=== PATIENT | male | born 1985 | race Caucasian/White ===

== ENCOUNTER 2021-07-16 15:54 | Emergency (ER) | payer MEDICAID, SELFPAY ==
--- NOTE | ~2021-07-16 | XR_ITS ---
EXAMINATION: XR CHEST CLINICAL INFORMATION: Chest pain COMPARISON: Previous chest x-ray July 2015 TECHNIQUE: Frontal view of the chest was obtained. FINDINGS: No significant abnormality is noted involving the heart, lungs, mediastinum, bony thorax or soft tissues. XR/XR chest 1V IMPRESSION: Unremarkable examination.
[2021-07-16 15:59] VITALS: BP 145/92; PULSE 88; RESP 18; TEMP 36.8; O2SAT 96; BMI 34.3
--- NOTE | 2021-07-16 16:08 | ECG_ITS ---
Test Reason : CHEST PAIN Blood Pressure : / mmHG Vent. Rate : 079 BPM Atrial Rate : 079 BPM P-R Int : 150 ms QRS Dur : 086 ms QT Int : 384 ms P-R-T Axes : 025 046 036 degrees QTc Int : 440 ms Normal sinus rhythm Normal ECG No previous ECGs available Referred By: Generic ED Physician Electronically Signed By:LEDA QUICK
[2021-07-16 16:43] LABS: Basophils Percent Auto 0.5 % (0-2); Eosinophils Absolute Auto 0.3 X10*3/uL (0.0-0.4); Eosinophils Percent Auto 3.7 % (0-4); Hematocrit 44.4 % (42-52); Hemoglobin 14.9 g/dl (14.0-18.0); Imm Gran Abs Auto 0.03 X10*3/uL (0.00-0.03); Imm Gran Pct Auto 0.4 % (0.0-0.4); Lymphocytes Absolute Auto 3.2 X10*3/uL (1.2-4.9); Lymphocytes Percent Auto 41.7 % (20-40); MANUAL DIFF FLAG NO; Mean Corpuscular HGB Conc 33.6 g/dl (31.0-36.0); Mean Corpuscular Hemoglobin 28.3 pg (27.0-33.0); Mean Corpuscular Volume 84.3 fL (80-98); Mean Platelet Volume 9.8 fL (9.4-12.4); Monocytes Absolute Auto 0.6 X10*3/uL (0.1-1.2); Monocytes Percent Auto 8.3 % (2-11); Neutrophils Absolute Auto 3.5 X10*3/uL (2.0-8.3); Neutrophils Percent Auto 45.4 % (45-73); Platelet Count 320 X10*3/uL (160-400); Red Blood Count 5.27 X10*6/uL (4.60-5.80); White Blood Count 7.7 X10*3/uL (4.8-10.8)
[2021-07-16 16:55] LABS: Anion Gap 13 (12-20); Blood Urea Nitrogen 14 mg/dL (9-16); Calcium 9.1 mg/dL (8.4-10.2); Carbon Dioxide 24 mmol/L (22-29); Chloride 108 mmol/L (96-108); Creatinine Clr Calc Pharmacy 130.9; Estimated Glomerular Filt Rate > 60; Glucose Random 84 mg/dL (60-115); Potassium 3.9 mmol/L (3.3-5.1); Sodium 141 mmol/L (135-145)
[2021-07-16 17:04] LABS: Troponin-I High Sensitivity < 3.5 ng/L (<3.5-35.0)
--- NOTE | 2021-07-16 17:52 | ED.CHESTPAIN ---
HPI - Chest Pain General Chief Complaint: Chest Pain Stated Complaint: Chest pain Time Seen by Provider: 07/16/21 17:33 Source: patient Mode of arrival: ambulatory Limitations: no limitations History of Present Illness HPI narrative: Patient presents complaining of chest pain. Has been present for the past several weeks. He thinks it may be due to his hypertension. He has had longstanding episodes of high blood pressure which he has taken at home. He has intermittently taking 5 mg of amlodipine which he bought in [place]. He states this helps but he typically only takes it every time he feels he has a headache which is only every few days. He has never been on daily treatment for his hypertension. he recently traveled from of [place] and a 14 hour plane flight. Since that time he has been having chest pain and some dyspnea. The chest pain he describes is substernal pressure. Yesterday radiated to his arm. It is constant. It has been present since the flight. He states he would occasionally get up before the flight. No history of thromboembolic disease that he knows of. He does have a significant family history for cardiovascular disease in that his father and uncle both of MIs at a relatively young age. He has an extensive family history of hypertension. 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 He occasionally gets swelling in his feet. But he denies any focal leg or calf pain or swelling. No recent fevers or chills. He was tested for COVID prior to flying and it was negative. Related Data Previous Rx's Medication Instructions Recorded amlodipine 10 mg tablet 10 mg PO DAILY #60 tab 07/16/21 Allergies Allergy/AdvReac Type Severity Reaction Status Date / Time No Known Allergies Allergy Verified 07/16/21 15:59 [No Known Allergies*] Review of Systems Constitutional: Constitutional: Denies fever(s) Cardiovascular: Cardiovascular: Reports chest pain, Reports dyspnea and Reports dyspnea on exertion Respiratory: Respiratory: Denies cough, Reports dyspnea and Reports dyspnea on exertion Gastrointestinal: Comments: Chronic diarrhea. Musculoskeletal: Comments: No calf pain Neurologic: Comments: No weakness numbness or paresthesias Psychiatric: Comments: Anxiety [facility] Past Medical History [facility] Narrative: Family history as mentioned in HPI Medical History (Updated 07/16/21 @ 19:27 by Russ Vides MD) Hypertension Social History Social History Patient Tobacco Use Status: Current someday Tobacco user Smoked in Last 30 Days: Yes Use of substances other than those prescribed or required for medical reasons: No Advance Directives: No Advance Directives Information Provided: No Physical Exam Vital Signs: Vital Signs: Last Vital Signs Temp 98.2 F 07/16/21 15:59 Pulse 69 07/16/21 19:04 Resp 16 07/16/21 18:58 BP 127/89 07/16/21 19:04 Pulse Ox 98 07/16/21 18:58 Body Mass Index 34.3 Const: General: healthy appearing, no acute distress and alert Chest: Other: Chest is nontender Resp: Other: Clear and equal bilaterally without wheezes rales or rhonchi Cardio: Other: Regular rate and rhythm without murmurs rubs or gallops GI: Other: Soft nontender nondistended with normoactive bowel sounds Skin: Other: Warm pink and dry Neuro: Other: Awake alert in no acute distress Extrem: Other: No calf tenderness Course Course Course Narrative: Chest pain CA Hypertensive crisis Untreated hypertension Rule out end-organ injury Pulmonary embolism Chronic diarrhea Workup in the emergency department shows normal EKG. Troponin, high sensitivity, is normal. Remainder of labs are also normal without evidence of renal injury. He is moderately hypertensive with a blood pressure 145/92. Amlodipine ordered. We will start him on long-term amlodipine therapy. In the meantime will order D-dimer as patient had recent long flight and potentially as a pulmonary embolism. If D-dimer is normal will hold off on further diagnostics. If it is elevated, we will order CT angiogram 7:26 p.m.. D-dimer is negative. Patient is stable for discharge home MDM - Chest Pain Lab Data Result diagrams: 07/16/21 16:34 07/16/21 16:34 Labs: Lab Results 07/16/21 07/16/21 07/16/21 Range/Units 16:34 16:34 16:34 WBC 7.7 (4.8-10.8) X10*3/uL RBC 5.27 (4.60-5.80) X10*6/uL Hgb 14.9 (14.0-18.0) g/dl Hct 44.4 (42-52) % MCV 84.3 (80-98) fL MCH 28.3 (27.0-33.0) pg MCHC 33.6 (31.0-36.0) g/dl RDW 13.0 (11.0-16.0) % Plt Count 320 (160-400) X10*3/uL MPV 9.8 (9.4-12.4) fL Immature Gran % (Auto) 0.4 (0.0-0.4) % Neut % (Auto) 45.4 (45-73) % Lymph % (Auto) 41.7 H (20-40) % Stonewall % (Auto) 8.3 (2-11) % Eos % (Auto) 3.7 (0-4) % Baso % (Auto) 0.5 (0-2) % Lymph # (Auto) 3.2 (1.2-4.9) X10*3/uL Stonewall # (Auto) 0.6 (0.1-1.2) X10*3/uL Eos # (Auto) 0.3 (0.0-0.4) X10*3/uL Baso # (Auto) 0.0 (0.0-0.2) X10*3/uL Abs Immat Gran (auto) 0.03 (0.00-0.03) X10*3/uL Absolute Neuts (auto) 3.5 (2.0-8.3) X10*3/uL Absolute Nucleated RBC 0.000 (0.0-0.012) X10*3/uL Nucleated RBC % (auto) 0.0 (0.0-0.2) /100WBC D-Dimer NG/ML Sodium 141 (135-145) mmol/L Potassium 3.9 (3.3-5.1) mmol/L Chloride 108 (96-108) mmol/L Carbon Dioxide 24 (22-29) mmol/L Anion Gap 13 (12-20) BUN 14 (9-16) mg/dL Creatinine 1.01 (0.5-1.4) mg/dL Estim Creat Clear Calc 130.9 Estimated GFR > 60 Random Glucose 84 (60-115) mg/dL Calcium 9.1 (8.4-10.2) mg/dL Troponin I High Sens < 3.5 (<3.5-35.0) ng/L 07/16/21 Range/Units 18:46 WBC (4.8-10.8) X10*3/uL RBC (4.60-5.80) X10*6/uL Hgb (14.0-18.0) g/dl Hct (42-52) % MCV (80-98) fL MCH (27.0-33.0) pg MCHC (31.0-36.0) g/dl RDW (11.0-16.0) % Plt Count (160-400) X10*3/uL MPV (9.4-12.4) fL Immature Gran % (Auto) (0.0-0.4) % Neut % (Auto) (45-73) % Lymph % (Auto) (20-40) % Stonewall % (Auto) (2-11) % Eos % (Auto) (0-4) % Baso % (Auto) (0-2) % Lymph # (Auto) (1.2-4.9) X10*3/uL Stonewall # (Auto) (0.1-1.2) X10*3/uL Eos # (Auto) (0.0-0.4) X10*3/uL Baso # (Auto) (0.0-0.2) X10*3/uL Abs Immat Gran (auto) (0.00-0.03) X10*3/uL Absolute Neuts (auto) (2.0-8.3) X10*3/uL Absolute Nucleated RBC (0.0-0.012) X10*3/uL Nucleated RBC % (auto) (0.0-0.2) /100WBC D-Dimer < 200 NG/ML Sodium (135-145) mmol/L Potassium (3.3-5.1) mmol/L Chloride (96-108) mmol/L Carbon Dioxide (22-29) mmol/L Anion Gap (12-20) BUN (9-16) mg/dL Creatinine (0.5-1.4) mg/dL Estim Creat Clear Calc Estimated GFR Random Glucose (60-115) mg/dL Calcium (8.4-10.2) mg/dL Troponin I High Sens (<3.5-35.0) ng/L Discharge Plan Discharge Clinical Impression: Atypical chest pain, Hypertension Patient Disposition: Home, Self-Care Instructions: Hypertension (ED), Chest Wall Pain (ED) Additional Instructions: Taking amlodipine daily. Be sure to check your blood pressure twice daily and record the results. Follow-up with Dr. Sanders for GI issues. Follow-up with Dr. Torres for your hypertension and significant family history of cardiac disease Prescriptions: New amlodipine 10 mg tablet 10 mg PO DAILY Qty: 60 RF: 0 Referrals: Brian Torres MD [Physician] - 2 days Darrell Sanders [Physician] - 2 days
[2021-07-16 18:58] VITALS: BP 125/81; PULSE 74; RESP 16; O2SAT 98
[2021-07-16 19:01] LABS: D Dimer < 200 NG/ML
[2021-07-16 19:04] VITALS: BP 127/89; PULSE 69
[2021-07-16] MEDS: amLODIPine Besylate 10 MG TABLET PO (19:04)
== END 2021-07-16 19:38 | disposition home or self-care (01) ==
PROVIDERS: Emergency Provider Emergency Medicine; PCP Nurse Practitioner Family
DX: R07.9 Chest pain, unspecified (principal); I10 Essential (primary) hypertension; Z79.899 Other long term (current) drug therapy
CPT/HCPCS: 36415; 71045; 80048; 84484; 85025; 85379; 93005; 99284; 99285

== ENCOUNTER → 2021-08-14 13:11 | Outpatient (BNVA) | payer MEDICAID, SELFPAY | PROVIDERS: PCP Nurse Practitioner Family; Referring Provider Nurse Practitioner Family; Visit Provider Nurse Practitioner Family | DX: R07.89 Other chest pain (principal); I10 Essential (primary) hypertension | CPT/HCPCS: 99202 ==

== ENCOUNTER → 2021-09-17 09:48 | Outpatient (REF) | payer MEDICAID, SELFPAY ==
--- NOTE | 2021-09-17 09:53 | CA_ITS ---
Acquisition Time: 2021-09-17 11:03:17 Total Exercise Time: 00:09:00 Test Indications: CP, SOB Medications: SEE CHART Protocol: PAVAN Max HR: 153 BPM 83% of Pred: 183 BPM Max BP: 178/088 mmHG Max Work Load: 10.4 METS Exercise stress test with exercise 9 min of Pavan protocol, with mild to mod sob, no chest discomfort, without arrythmia, with normotensive response to exercise, without EKG changes meeting criteria for ischemia. Test reviewed with Dr Torres Referred By: Danielle Rousseau Overread By: DANIELLE ROUSSEAU
--- NOTE | 2021-09-17 09:53 | CA_ITS ---
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 6.3 E Lat 7.4 AV Cusps Trileaflet: Yes Doppler Measurements: AORTIC PP mmHg MP mmHg Velocity: 1.2 Pulmonic: PP mmHg MPG 4 mmHg TRICUSPID: PP mmHg RA Vol. IVC: 1.8 cm LA Vol. 27.2 RVS 14 MTDD
--- NOTE | 2021-09-17 09:53 | CA_ITS ---
Transthoracic Echocardiogram Patient (Last, First, Middle): Inderjit Barillas, Gender: Male Date of : 1985 Age: 36 Procedure Date: 09/17/2021 Procedure Type: Transthoracic Echocardiogram Location: OP Height: 182.88 cm Weight: 111.13 kg BSA: 2.32 m2 Heart Rate: bpm BP: 140 / 80 mmHg Curriculum And Instruction Director: MACKENZIE Referring MD: Danielle Rousseau AESTHETICS INSTRUCTOR-Juan Biological Science Technician Fish: Claudy Coffman MD Symptoms: I10 - Essential (primary) hypertension Study Quality: Good ECG Rhythm: Sinus Conclusions: - 1. Normal LV systolic function with impaired relaxation filling pattern 2. Normal cardiac valvular Doppler 3. Normal RV systolic pressure 4. No pericardial effusion Findings Left Ventricle Normal left ventricular size, thickness, and systolic function. The visually estimated ejection fraction is between 60-65%. Spectral Doppler is indicative of an impaired relaxation filling pattern. E/E prime ratio is between 8 and 15 consistent with indeterminate filling pressures. Right Ventricle Normal right ventricular cavity size and systolic function. Atria Both atria are normal in size. There is no evidence of interatrial shunt. Aortic Valve The aortic valve structure and function is likely normal. There is no aortic valve stenosis. There is no aortic valve regurgitation. Mitral Valve Normal mitral valve structure and function. There is trace mitral valve regurgitation. There is no mitral valve stenosis. Pulmonic Valve The pulmonic valve was not well visualized. Tricuspid Valve Likely normal tricuspid valve structure and function. There is trace tricuspid valve regurgitation. The right ventricular systolic pressure is normal. The right ventricular systolic pressure is 18 mmHg. There is no evidence of pulmonary hypertension. Great Vessels All visible segments of the aorta are normal in size. The pulmonary artery was not well visualized. Venous The inferior vena cava is normal in size and collapses greater than 50% with inspiration. Pericardium/Pleural There is no evidence of pericardial effusion. Prior Study Comparison No prior study available for comparison. Measurements 2D Linear Measurements IVSd: 1.02 0.6-0.9/0.6-1.0 cm LVIDd: 4.69 3.9-5.3/4.2-5.9 cm LVIDd Index: 2.02 2.4-3.2/2.2-3.1 cm/m2 LVIDs: 2.59 2.0-3.6 cm LVPWd: 1.02 0.7-1.1 cm Ao Root: 3.40 2.1-3.5 cm LA Diam: 3.40 2.7-3.8/3.0-4.0 cm LAIDs Index: 1.47 1.5-2.3 cm/m2 LV Mass: 209.73 67-162/88-224 g LV Mass Index: 90.40 43-95/49-115 g/m2 LVOT Diam: 2.20 3.0+(-)1.3 cm 2D Systolic Function EF 4C: 61.40 >55% EF 2C: 57.90 >55% EF BiP: 57.90 >55% Mitral Valve MV Pk E: 0.66 MV PK A: 0.75 MV Decel Time: 169.00 E/A: 0.90 E'Lateral: 7.40 E'Medial: 6.31 E/E' Med: 10.50 E/E' Lat: 9.00 PHT: 49.00 MVA PHT: 4.49 Decel Sharkey: 3.94 Aortic Valve AoV Pk German: 1.25 AoV Mn German: 0.88 AoV VTI: 0.31 AoV Pk Grad: 6.00 Aov Mn Grad: 4.00 JERARDO Cont.VTI: 2.82 LVOT LVOT Pk German: 1.01 LVOT Mn German: 0.66 LVOT VTI: 0.23 LVOT Pk Grad: 4.00 LVOT Mn Grad: 2.00 LVOT Diam: 2.20 LVOT Area: 3.80 Diastolic Function MV Pk E: 0.66 MV Pk A: 0.75 E/A: 0.90 E'Medial: 6.31 E/E' Med: 10.50 E' Laterial: 7.40 E/E' Lat: 9.00 Right Ventricle TAPSE (mm): 2.10 Tricuspid Valve TR Pk German: 1.94 TR Pk Grad: 15.00 RA Press: 3.00 RVSP: 18.00 Great Vessels Aorta Ao Root-2D: 3.40 2.0-3.7 cm Ao Asc: 2.90 2.1-3.4 cm Pulmonary Valve PV Pk German: 0.96 Peak PV Grad: 4.00 Updated in Other Vendor System with Status of Final Claudy Coffman MD electronically signed on 09/24/2021 8:45:51 AM with status of Final
== END ==
LOC: HO.CARD 09:48
PROVIDERS: Visit Provider Nurse Practitioner Family
DX: I10 Essential (primary) hypertension (principal); R07.89 Other chest pain
CPT/HCPCS: 93017; 93306

== ENCOUNTER → 2021-10-22 14:51 | Outpatient (BNVA) | payer MEDICAID, SELFPAY | PROVIDERS: PCP Nurse Practitioner Family; Referring Provider Nurse Practitioner Family; Visit Provider Nurse Practitioner Family | DX: R07.89 Other chest pain (principal); I10 Essential (primary) hypertension | CPT/HCPCS: 99212 ==

== ENCOUNTER → 2023-01-07 13:55 | Outpatient (BNVA) | payer MEDICAID, SELFPAY | PROVIDERS: PCP Nurse Practitioner Family; Referring Provider Nurse Practitioner Family; Visit Provider Internal Medicine Cardiovascular Disease | DX: I10 Essential (primary) hypertension (principal) | CPT/HCPCS: 93005; 99212 ==

== ENCOUNTER 2023-06-21 13:58 | Outpatient (REF) | payer MEDICAID, SELFPAY ==
[2023-06-24 14:36] LABS: H Pylori Breath Test Negative (Negative)
== END 2023-06-21 13:59 | disposition home or self-care (01) ==
LOC: HO.LNP 13:58
PROVIDERS: PCP Nurse Practitioner Family; Visit Provider Internal Medicine Gastroenterology
DX: K21.9 Gastro-esophageal reflux disease without esophagitis (principal); R13.10 Dysphagia, unspecified
CPT/HCPCS: 83013; 99202

== ENCOUNTER 2023-06-21 13:58 | Outpatient (AMB) | payer MEDICAID, SELFPAY ==
--- NOTE | 2023-06-21 14:19 | A.OFFVIS_ITS ---
Intake Vital Signs 06/21/23 14:20 Height 6 ft Weight 244 lb 11.41 oz BMI 33.2 BP 119/70 Blood Pressure Location Lt brachial Position Sitting Pulse 71 Intake Visit Reasons: Gastroesophageal reflux disease (GERD) Intake Note: Christopher presents in the office as a new patient for GERD. CC: He states that he is having acid reflux or symptoms that are related. He has some burning and sometimes acid will come up. If he eats spicey things then he will have issues. Allergies No Known Allergies [No Known Allergies*] Allergy (Verified 06/21/23 14:21) HPI Gastroesophageal reflux disease (GERD) HPI Details 38 yr old patient being seen for assessment for assorted GI sx He has had stool frequency since young age usually post prandial he has had EGD x 2 in the past he has mild-moderate reflux notes sensation of heaviness when eating solids he has to drink water or get patted on the back going on for 4-5 months denies nausea or vomiting he has abdominal pain--epigastric pain, on and off for 2 months stools are mushy, no blood noted he has fatigue, poor sleep PMH: HTN< PSH: umbilical hernia repair SH: smoking tobacco, vaping, 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, 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 FH: father had similar symptoms, ?had peptic ulcer--brother also has peptic sx ROS: Constitutional : No Weight loss, No Fever, No Chills ENT/Mouth : No sore throat, No Rhinorrhea Eyes: No Swelling, No Redness Cardiovascular : No Chest Pain, No SOB, No Edema Respiratory : No Cough, No Sputum, No Wheezing Gastrointestinal : see HPI Genitourinary : NO Dysuria, No Urinary Frequency, No Hematuria, No Urgency Musculoskeletal : No joint pain, No Myalgias, No Joint Swelling Skin : No Skin Lesions, No rash Neuro : No Weakness, No Numbness, No Dizziness, No Headache Psych : No Anxiety/Panic, No Depression Heme/Lymph: No Bruising, No Lymphadenopathy Endocrine : No Polyuria, No Polydipsia All other systems reviewed and are negative. EXAM: GENERAL: The patient is well developed and nontoxic. VITAL SIGNS:see workflow HEENT: Nonicteric sclerae, PERRLA, EOMI. Oropharynx clear. Moist mucous membranes. Conjunctivae appear well perfused. No thyroid mass. CHEST: Chest wall is nontender. HEART: Regular rate and rhythm without murmurs. LUNGS: Clear to auscultation bilaterally. ABDOMEN: Soft, positive bowel sounds, nontender, no organomegaly.no flank tenderness SKIN: No rash, no excessive bruising, petechiae, or purpura. NEUROLOGIC: Cranial nerves II-XII intact without motor/sensory deficit. Psych: nml affect A/P: Post prandial diarrhea, maybe related to acid xs, or rapid gastric emptying, food intolerance, celiac, 2/2 olmesartan, IBD Dysphagia probably 2/2 GERD, ddx: EoE, schatzki, medications puma CCB Plan: 1/ Recommended on smoking cessation 2/ weight loss 3/ H pylori breath test 4/ EGD with balloon dilation [facility] Medical History Hypertension Surgical History History of esophagogastroduodenoscopy (EGD) Hx of colonoscopy No pertinent past surgical history Family History Father Heart disease Heart attack Mother HTN (hypertension) Diabetes Brother HTN (hypertension) Paternal Uncle Heart attack Family/Other Heart attack Family/Other Heart disease Hx of CABG Social History Alcohol intake: never Patient Tobacco Use Status: Never used Tobacco e-Cigarette/Vaping Use: Currently Using Physical Exam Vital Signs: Last Vital Signs Pulse 71 06/21/23 14:20 BP 119/70 06/21/23 14:20 BMI result Body Mass Index 33.2 Assessment & Plan Assessment & Plan (1) Dysphagia: Code(s): R13.10 - Dysphagia, unspecified (2) GERD (gastroesophageal reflux disease): Code(s): K21.9 - Gastro-esophageal reflux disease without esophagitis Medications: New pantoprazole 40 mg PO DAILY 90 tabs 2RF Coding Level of Care Code New Pt Level 4 (90769) Diagnoses Dysphagia R13.10 GERD (gastroesophageal reflux disease) K21.9
[2023-06-21 14:20] VITALS: BP 119/70; PULSE 71; BMI 33.2
== END 2023-06-21 15:10 | disposition home or self-care (01) ==
PROVIDERS: PCP Nurse Practitioner Family; Visit Provider Internal Medicine Gastroenterology
DX: R13.10 Dysphagia, unspecified (principal); K21.9 Gastro-esophageal reflux disease without esophagitis
CPT/HCPCS: 99204

== ENCOUNTER 2023-10-11 14:04 | Outpatient (AMB) | payer MEDICAID, SELFPAY ==
--- NOTE | 2023-10-11 14:05 | A.OFFVIS_ITS ---
Intake Vital Signs 10/11/23 14:12 Height 6 ft Weight 247 lb 1.957 oz BMI 33.5 BP 132/71 Blood Pressure Location Lt brachial Position Sitting Pulse 72 Intake Visit Reasons: 4 month follow up Intake Note: Inderjit presents in the office as a 4 month follow up CC: No concerns today Allergies No Known Allergies [No Known Allergies*] Allergy (Verified 10/11/23 14:12) HPI 4 month follow up HPI Details 38 yr old m here for f/u RECAP: He has had stool frequency since young age usually post prandial he has had EGD x 2 in the past he has mild-moderate reflux notes sensation of heaviness when eating solids he has to drink water or get patted on the back going on for 4-5 months denies nausea or vomiting he has abdominal pain--epigastric pain, on and off for 2 months stools are mushy, no blood noted he has fatigue, poor sleep INTERIM: he still has sx as above H pylori was neg he was supposed to get EGD not booked yet he can have some post prandial diarrhea 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 VITAL SIGNS:see workflow HEENT: Nonicteric sclerae, PERRLA, EOMI. Oropharynx clear. Moist mucous membranes. Conjunctivae appear well perfused. No thyroid mass. CHEST: Chest wall is nontender. HEART: Regular rate and rhythm without murmurs. LUNGS: Clear to auscultation bilaterally. ABDOMEN: Soft, positive bowel sounds, nontender, no organomegaly.no flank tenderness SKIN: No rash, no excessive bruising, petechiae, or purpura. NEUROLOGIC: Cranial nerves II-XII intact without motor/sensory deficit. Psych: nml affect A/P: Post prandial diarrhea, maybe related to acid xs, or rapid gastric emptying, food intolerance, celiac, 2/2 olmesartan, IBD Dysphagia probably 2/2 GERD, ddx: EoE, schatzki, medications puma CCB --was supposed to get EGD for further assessment Plan: 1/ Recommended on smoking cessation 2/ EGD with balloon dilation as original ly planned 3/ he felt PPI was not effective, will h old for the moment [facility] Medical History Hypertension Surgical History Hx of colonoscopy History of esophagogastroduodenoscopy (EGD) No pertinent past surgical history Family History Father Heart disease Heart attack Mother HTN (hypertension) Diabetes Brother HTN (hypertension) Paternal Uncle Heart attack Family/Other Heart attack Family/Other Heart disease Hx of CABG Social History Alcohol intake: never Patient Tobacco Use Status: Never used Tobacco e-Cigarette/Vaping Use: Currently Using Physical Exam Vital Signs: Last Vital Signs Pulse 72 10/11/23 14:12 BP 132/71 10/11/23 14:12 BMI result Body Mass Index 33.5 Assessment & Plan Assessment & Plan (1) Dysphagia: Code(s): R13.10 - Dysphagia, unspecified Qualifiers: Dysphagia type: esophageal phase Qualified Code(s): R13.19 - Other dysphagia Plan see above Coding Level of Care Code Est Pt Level 3 (98780) Diagnoses Esophageal dysphagia R13.19 Dysphagia type: esophageal phase
[2023-10-11 14:12] VITALS: BP 132/71; PULSE 72; BMI 33.5
== END 2023-10-11 15:27 | disposition home or self-care (01) ==
PROVIDERS: PCP Nurse Practitioner Family; Visit Provider Internal Medicine Gastroenterology
DX: R13.19 Other dysphagia (principal)
CPT/HCPCS: 99213

== ENCOUNTER → 2023-10-11 14:04 | Outpatient (BNVA) | payer MEDICAID, SELFPAY | PROVIDERS: PCP Nurse Practitioner Family; Visit Provider Internal Medicine Gastroenterology | DX: R13.19 Other dysphagia (principal) | CPT/HCPCS: 99212 ==

== ENCOUNTER 2023-10-14 10:36 | Day surgery (SDC) | payer MEDICAID, SELFPAY ==
--- NOTE | 2023-10-13 09:50 | HO.ANESPROP2 ---
Documented by User: Tanika Morrison NP 10/13/23 09:51 HPI - Anesthesia Eval Consult details Narrative: 38yo M for Upper Endoscopy [facility] Active Problems Active Problems: All Active Problems (Updated 10/11/23 @ 15:01 by Wai Begum MD) GERD (gastroesophageal reflux disease) (Acute) Dysphagia (Acute) Hypertension (Acute) Chest discomfort (Acute) Past Medical History Medical History Hypertension Family History Family History Father Heart disease Heart attack Mother HTN (hypertension) Diabetes Brother HTN (hypertension) Paternal Uncle Heart attack Family/Other Heart attack Family/Other Heart disease Hx of CABG Surgical History Surgical History Hx of colonoscopy History of esophagogastroduodenoscopy (EGD) No pertinent past surgical history Social History Social History Alcohol intake: never Patient Tobacco Use Status: Never used Tobacco e-Cigarette/Vaping Use: Currently Using Advance Directives: No Advance Directives Information Provided: Yes Meds Allergies Allergy/AdvReac Type Severity Reaction Status Date / Time No Known Allergies Allergy Verified 10/11/23 14:12 [No Known Allergies*] Home Medications Medication Instructions Recorded Confirmed Last Taken Type olmesartan 20 mg tablet 20 mg PO QAM 01/07/23 01/07/23 Unknown History Assessment and Plan Assessment Anesthesia Assessment: Chart Reviewed Documented by User: Louis Quijano MD 10/14/23 10:43 [facility] Past Medical History Medical History Hypertension Family History Family History Father Heart disease Heart attack Mother HTN (hypertension) Diabetes Brother HTN (hypertension) Paternal Uncle Heart attack Family/Other Heart attack Family/Other Heart disease Hx of CABG Family history of problems with anesthesia: No Surgical History Surgical History Hx of colonoscopy History of esophagogastroduodenoscopy (EGD) No pertinent past surgical history History of Problems with Anesthesia: No Social History Social History Alcohol intake: never Patient Tobacco Use Status: Never used Tobacco e-Cigarette/Vaping Use: Currently Using Advance Directives: No Advance Directives Information Provided: Yes Meds Allergies Allergy/AdvReac Type Severity Reaction Status Date / Time No Known Allergies Allergy Verified 10/11/23 14:12 [No Known Allergies*] Home Medications Medication Instructions Recorded Confirmed Last Taken Type olmesartan 20 mg tablet 20 mg PO QAM 01/07/23 01/07/23 Unknown History Exam Airway Mallampati Class: II TM Dist: >3cm Neck ROM: Full Heart: rrr Lungs: cta Assessment and Plan Assessment Anesthesia Assessment: Anesthesia Plan Discussed Final Anesthetic Review Family History of Problems with Anesthesia: No History of Problems with Anesthesia: No NPO: Yes ASA Class: II Final Preanesthetic Review: No Changes in Pt Med Stat, Meds/Allgs Chart Reviewed, Consent Obtained/Reviewed and Anes Risks/Benef Reviewed Patient Risk: Low Procedure Risk: Intermediate Anesthetic Plan Anesthetic Plan: GA and Agree w/ Assess. and Plan Disposition: Standard PACU
[2023-10-14 10:45] VITALS: BMI 33.5
[2023-10-14] MEDS: Lactated Ringers 1,000 ML 100 ML IVCONT (10:50)
[2023-10-14 10:56] VITALS: BP 117/78; PULSE 77; RESP 18; TEMP 36.7; O2SAT 99
--- NOTE | 2023-10-14 11:02 | MHC.SHP ---
Pre-Procedural Eval Section A Date of Service: 10/14/23 The patient is an INPATIENT: No The History & Physical has been completed within 30 days and I have reviewed it.: Yes Section B Chief Complaint: Dysphagia, unspecified Allergies: Allergies Allergy/AdvReac Type Severity Reaction Status Date / Time No Known Allergies Allergy Verified 10/14/23 10:46 [No Known Allergies*] Plan Diagnosis/Plan: Unchanged I have reviewed the history and physical and performed a pertinent physical examination on my patient. No changes have occurred unless specified. EGD with bx and dilation Time Spent With Patient Time: Total time managing care of this patient today ____ minutes.
--- NOTE | 2023-10-14 11:02 | W.PM.OPN ---
Operative Note Operative Note Date of Service: 10/14/23 Narrative: Procedure Description: EGD Indication: dysphagia Anesthesia: MAC FLEXIBLE TRANSORAL UPPER GASTROINTESTINAL ENDOSCOPY UPPER ENDOSCOPY Consent: Indications for the procedure and potential complications of bleeding, perforation, reaction to medications and missed diagnosis were discussed with the patient and informed consent was obtained. Instrument: Olympus GIF H 190 J mid size upper endoscope Monitoring: Vital signs and clinical assessment, continuous EKG monitoring, Pulse oximetry, Carbon Dioxide monitoring and blood pressure monitoring were done throughout the procedure. Procedure: The patient was placed in the left lateral decubitis position and pre-procedure medications were administered and a bite block was placed. The endoscope was inserted into the mouth and advanced under direct vision to the third part of duodenum. A careful inspection was made as the upper endoscope was withdrawn including a retroflexed examination of the proximal stomach; Findings and interventions are described below. Findings: Larynx:normal Esophagus: GE junction at 38 cm, diaphragm hiatus at 40 cm, no varices or esophagitis, 2 cm sliding hiatal hernia-bx taken from GEJ and distal, proximal esophagus--balloon dilation done --inlet patch noted in proximal esophagus Stomach: Patchy gastric erythema. Biopsies were obtained. Grade 2 flap valve on retroflexed examination of the cardia. Duodenum: Normal bulb and descending duodenum, Intervention: Biopsies as noted above, balloon dilation Impression/Findings: hiatal hernia gastritis inlet patch PLAN: await bx GERD precautions PPI compliance smoking cessation
[2023-10-14 11:33] VITALS: BP 108/71; PULSE 81; RESP 12; TEMP 36.1; O2SAT 98
[2023-10-14 11:45] VITALS: BP 114/75; PULSE 77; RESP 20; TEMP 36.4; O2SAT 97
[2023-10-14] MEDS: Acetaminophen 325 MG TABLET 975 MG PO (11:45)
[2023-10-14] MEDS: Mag&Al/Sim/Diphenhyd/Lidocaine 10 ML ORAL.SUSP PO (11:45)
== END 2023-10-14 12:22 | disposition home or self-care (01) ==
PROVIDERS: PCP Registered Nurse; Visit Provider Internal Medicine Gastroenterology
PROC: 0DJ08ZZ Inspection of Upper Intestinal Tract, Via Natural or Artificial Opening Endoscopic (ICD-10-PCS; CPT 43235; principal; 2023-10-14 13:30)
DX: K29.70 Gastritis, unspecified, without bleeding (principal); K22.89 Other specified disease of esophagus; K44.9 Diaphragmatic hernia without obstruction or gangrene; R13.10 Dysphagia, unspecified; K21.9 Gastro-esophageal reflux disease without esophagitis; I10 Essential (primary) hypertension; F17.290 Nicotine dependence, other tobacco product, uncomplicated; Z79.899 Other long term (current) drug therapy
CPT/HCPCS: 43251; 43239; 88305; 88342; C1726; J2704

== ENCOUNTER → 2023-10-14 10:36 | Outpatient (BNV) | payer MEDICAID, SELFPAY | PROVIDERS: PCP Registered Nurse; Visit Provider Internal Medicine Gastroenterology | DX: R13.10 Dysphagia, unspecified (principal); K29.70 Gastritis, unspecified, without bleeding | CPT/HCPCS: 43239; 43249 ==

== ENCOUNTER 2024-01-07 17:29 | Outpatient (REF) | payer MEDICAID, SELFPAY | END 2024-01-07 17:30 | disposition home or self-care (01) | LOC: HO.HHCLNP 17:29 | PROVIDERS: Visit Provider Student in an Organized Health Care Education/Training Program | DX: J06.9 Acute upper respiratory infection, unspecified (principal) | CPT/HCPCS: 87070 ==

== ENCOUNTER → 2024-06-02 20:30 | Outpatient (REF) | payer MEDICAID, SELFPAY | LOC: HO.SL 20:30 | PROVIDERS: PCP Registered Nurse; Visit Provider Registered Nurse | DX: Z13.89 Encounter for screening for other disorder (principal) ==

== ENCOUNTER 2024-09-20 14:39 | Outpatient (REF) | payer MEDICAID, SELFPAY ==
[2024-09-20 18:27] LABS: Vitamin D 25-OH Total 71.8 ng/mL (>30)
[2024-09-20 18:39] LABS: Folate 12.8 ng/mL (> or = 4.0); Vitamin B12 415 pg/mL (200-900)
[2024-09-25 06:48] LABS: Methylmalonic Acid 124 nmol/L (55-335)
== END 2024-09-20 14:40 | disposition home or self-care (01) ==
LOC: HO.CHCLDS 14:39
PROVIDERS: Visit Provider Registered Nurse
DX: R53.83 Other fatigue (principal)
CPT/HCPCS: 36415; 82306; 82607; 82746; 83921